=== PATIENT | female | born 1980 | race Caucasian/White ===

== ENCOUNTER 2017-12-19 15:16 | Emergency (ER) ==
[2017-12-19 15:23] VITALS: BP 170/89; TEMP 99.7; BMI 31.6
--- NOTE | 2017-12-19 16:06 | DI ---
EXAM: Chest PA and lateral HISTORY: Cough. COMPARRISON: 09/29/2016. FINDINGS: The heart is normal in size. Pulmonary vascularity is within normal limits. Bibasilar patch y airspace opacities are seen. Central airway thickening is present. No evidence of pleural effusion is seen. IMPRESSION: Bibasilar patchy atelectasis or pneumonia. Central airway thickening suggesting superimposed bronchiolitis/bronchitis.
--- NOTE | 2017-12-19 16:23 | ED.PDOC ---
General ED Provider: Dr. MICHELLE LAST Chief Complaint: Cough Stated Complaint: cough flu like symptoms Time Seen by Physician: 15:30 Mode of Arrival: Walk-In Information Source: Patient Exam Limitations: No limitations Primary Care Provider: FAUSTINO HUTCHISON Nursing and Triage Documentation Reviewed and Agree: Yes Reviewed sepsis parameters & appropriate labs ordered?: Yes System Inflammatory Response Syndrome: Not Applicable Sepsis Protocol: For patient's 13 years and over: Temp is 96.8 and below OR 101 and greater Pulse >90 BPM Resp >20/minute Acutely Altered Mental Status Are patient's symptoms suggestive of a new infection, such as: -Pneumonia -Skin, Soft Tissue -Endocarditis -UTI -Bone, Joint Infection -Implantable Device -Acute Abdominal Infection -Wound Infection -Meningitis -Blood Stream Catheter Infection -Unknown System Inflammatory Response Syndrome: Not Applicable Respiratory Complaint Exam - Respiratory Complaint/Exam Onset/Duration: 2 days Symptoms Are: Still present Timing: Intermittent Initial Severity: Mild Current Severity: Mild Location: Nose, Throat, Chest Character: Reports: Non-productive cough, Dry cough Alleviating: Reports: None Associated Signs and Symptoms: Reports: URI, Nasal congestion. Denies: Rapid breathing, Dyspnea, Fever, Chills, Chest pain, Pleuritic chest pain, Wheezing, Hemoptysis, Dizziness, Calf pain, Calf swelling, Edema, Hoarseness, Sinus discomfort, Vomiting, Sore throat, Weight loss, Decreased oral intake, Increased thirst, Increased appetite, Increased urination Related History: Reports: Similar episode History of Healthcare-Acquired Pneumonia: No Related Surgical History: Reports: None Pulmonary Embolism Risk Factors: None Cardiac Risk Factors: Reports: None Pseudomonas Risk Factors: Reports: None Tuberculosis Risk Factors: Reports: None Status Asthmaticus Risk Factors: Reports: None Home Oxygen Use: No Recent Stress Test: No Recent Echo/LV Function: No Current Antibiotic Use: No Current Asthma Medication Use: No Respiratory Distress: None Inadequate Respiratory Effort: No Dysphagia Present: No Stridor Present: No JVD Present: No Retractions: Not Present Diminished Breath Sounds: No Sinus Tenderness: None Grunting Respirations: No Kussmaul Respirations: No Differential Diagnoses: Pneumonia, Bronchitis Review of Systems - Review Of Systems Constitutional: Reports: No symptoms Eyes: Reports: No symptoms Ears, Nose, Mouth, Throat: Reports: No symptoms Respiratory: Reports: Cough Cardiac: Reports: No symptoms GI: Reports: No symptoms : Reports: No symptoms Musculoskeletal: Reports: No symptoms Skin: Reports: No symptoms Neurological: Reports: No symptoms Endocrine: Reports: No symptoms Hematologic/Lymphatic: Reports: No symptoms All Other Systems: Reviewed and Negative Past Medical History - Past Medical History Previously Healthy: Yes Endocrine: Reports: None Cardiovascular: Reports: None Respiratory: Reports: None Hematological: Reports: None Gastrointestinal: Reports: None Genitourinary: Reports: None Neuro/Psych: Reports: None Musculoskeletal: Reports: None Cancer: Reports: None Last Menstrual Period: 1 week ago - Surgical History General Surgical History: Reports: None - Family History Family History: Reports: None - Social History Smoking Status: Current every day smoker, Heavy tobacco smoker Hx Substance Use: No Alcohol Screening: None Physical Exam - Physical Exam Appearance: Well-appearing, No pain distress, Well-nourished Eyes: REGINA, EOMI, Conjunctiva clear ENT: Ears normal, Nose normal, Oropharynx normal Respiratory: Airway patent, Breath sounds clear, Breath sounds equal, Respirations nonlabored Cardiovascular: RRR, Pulses normal, No rub, No murmur GI/: Soft, Nontender, No masses, Bowel sounds normal, No Organomegaly Musculoskeletal: Normal strength, ROM intact, No edema, No calf tenderness Skin: Warm, Dry, Normal color Neurological: Sensation intact, Motor intact, Reflexes intact, Cranial nerves intact, Alert, Oriented Psychiatric: Affect appropriate, Mood appropriate Interpretation - Radiology Interpretation Radiology Interpretation By: Radiologist Radiology Results: Positive (possible pneumonia) Critical Care Note - Critical Care Note Total Time (mins): 0 Course - Course Orders, Labs, Meds: Orders Category Date Time Status FLU A/B MOLECULAR Stat LAB 12/19/17 15:42 Uncollected MOLECULAR GROUP A STREP Stat LAB 12/19/17 15:42 Uncollected CHEST, 2 VIEWS PA & LAT Stat RADS 12/19/17 15:41 Ordered Vital Signs: Temp Pulse Resp BP Pulse Ox 12/19/17 15:17 99.7 F H 103 H 20 170/89 H 92 L Departure - Departure Time of Disposition: 16:23 Disposition: HOME SELF-CARE Discharge Problem: Cough, Bronchitis Instructions: Wheezing (ED), Bronchospasm (ED), Pneumonia (ED), Viral Syndrome (ED) Condition: Good Pt referred to PMD for follow-up: Yes IPMP verified?: No Additional Instructions: Please call your Family Physician as soon as possible to schedule a follow-up appointment. Allergies/Adverse Reactions: Allergies codeine Adverse Reaction (Verified 12/19/17 15:25) itching, vomiting hydromorphone HCl [From Dilaudid] Adverse Reaction (Verified 12/19/17 15:25) morphine Adverse Reaction (Verified 12/19/17 15:25) Home Medications: Ambulatory Orders Clarithromycin [Clarithromycin ER] 500 mg PO BID 12/19/17 Fluoxetine HCl [Prozac] 20 mg PO BID 12/19/17 Gabapentin 800 mg PO TID 12/19/17 Methylphenidate HCl [Ritalin] 10 mg PO BID 12/19/17 Prednisone 10 mg PO DIRECTED 12/19/17
== END 2017-12-19 16:52 | disposition home or self-care (01) ==
LOC: ED 15:16
DX: J40 Bronchitis, not specified as acute or chronic (principal); F17.210 Nicotine dependence, cigarettes, uncomplicated
CPT/HCPCS: 87502; 87651; 99283

== ENCOUNTER 2019-03-23 11:18 | Outpatient (CLI) ==
--- NOTE | 2019-03-23 12:06 | DI ---
EXAM: CHEST FRONTAL AND LATERAL VIEWS HISTORY: Car minor. COMPARISON: 12/19/2017 FINDINGS: Heart size and mediastinal contour remain within normal limits. Bibasilar interstitial a ccentuation may be chronic. No lashawn consolidations are seen. There is no vascular congestion, pneu mothorax or pleural fluid. IMPRESSION: 1. No definite consolidated pneumonia. Follow up with radiography if clinically indicated.
== END 2019-03-23 11:19 | disposition home or self-care (01) ==
LOC: RAD 11:18
PROVIDERS: ATTEND Family Medicine Addiction Medicine
DX: R05 Cough (principal)